=== PATIENT | male | born 1995 | race African-American/Black ===

== ENCOUNTER 2018-05-16 13:20 | Emergency (ER) | payer OTHER ==
[2018-05-16] MEDS: ACET/BUTAL/CAFF TAB PO (14:37)
[2018-05-16] MEDS: KETOROLAC 30 MG INJ IM (15:35)
== END 2018-05-16 16:29 | disposition home or self-care (01) ==
LOC: FTE 13:20
DX: R51 Headache (principal)
CPT/HCPCS: 96372; 99284-25; J1885

== ENCOUNTER 2018-05-19 13:26 | Emergency (ER) | payer OTHER | END 2018-05-19 17:15 | disposition home or self-care (01) | LOC: FTE 13:26 | DX: S06.0X0A Concussion without loss of consciousness, initial encounter (principal); W22.8XXA Striking against or struck by other objects, initial encounter; Y92.9 Unspecified place or not applicable | CPT/HCPCS: 70450; 99284-25 ==